=== PATIENT | female | born 2000 | race Hispanic/Latino ===

== ENCOUNTER 2019-08-09 14:17 | Emergency (ER) | payer BC ==
[~2019-08-09] VITALS: Ht 175.3 cm; Wt 99.3 kg
[2019-08-09] MEDS ORDERED: DEXAMETHASONE SOD PHOS 10 MG/1 ML VIAL IM ONE (14:45)
[2019-08-09] MEDS ORDERED: IBUPROFEN 200 MG TAB PO ONE (14:45)
[2019-08-09] MEDS ORDERED: ACETAMINOPHEN 325 MG TAB PO ONE (14:45)
== END 2019-08-09 15:08 | disposition home or self-care (01) ==
LOC: FSED 14:17
DX: J02.9 Acute pharyngitis, unspecified (principal)
CPT/HCPCS: 83518; 99283; J1100